=== PATIENT | male | born 1965 | race Caucasian/White ===

== ENCOUNTER 2016-06-20 20:04 | Emergency (ER) | payer BC ==
[~2016-06-20] VITALS: Ht 182.9 cm; Wt 69.0 kg
[~2016-06-20 20:04] MED LIST: ASPIRIN EC81 MG PO; FLOMAX0.4 M1 PO; INDERAL 20MG TA20 MG PO; LEVOTHYROXIN50 MCG PO; PRAVASTATIN40 MG PO
[2016-06-20 20:45] LABS: HEMATOCRIT 44.8 % (39.0-50.0); HEMOGLOBIN 15.6 g/dl (14.0-18.0); IMMATURE GRANULOCYTES 0.2 % (0.0-1.0); MEAN CORPUSCULAR HGB CONC 34.8 g/L CALC (32.0-36.0); NEUT# 4.52 thou/uL (1.82-7.42); RED BLOOD COUNT 4.87 mill/uL (4.70-6.10); RED CELL DISTRI WIDTH 12.4 % (11.5-15.5)
[2016-06-20 20:49] LABS: URINE BILIRUBIN - DIPSTICK NEGATIVE (NEGATIVE); URINE BLOOD DIPSTICK NEGATIVE (NEGATIVE); URINE CLARITY CLEAR; URINE COLOR YELLOW; URINE GLUCOSE - DIPSTICK NEGATIVE (NEGATIVE); URINE KETONE NEGATIVE (NEGATIVE); URINE LEUK ESTERASE NEGATIVE (NEGATIVE); URINE NITRITE - DIPSTICK NEGATIVE (Negative); URINE PH 5.5 (4.5-8.0); URINE PROTEIN - DIPSTICK NEGATIVE (NEG-TRACE); URINE UROBILINOGEN - DIPSTICK 0.2 E.U./dL (0.2)
[2016-06-20 21:02] LABS: ALBUMIN 4.3 g/dL (3.2-5.0); ALKALINE PHOSPHATASE 53 u/l (38-126); AMYLASE 88 u/l (30-110); ANION GAP 17 (6-22 (CALC)); BILIRUBIN, TOTAL 0.7 mg/dL (0.0-1.4); BUN 12 mg/dL (9-20); BUN/CREATININE RATIO 13 (12-20 (CALC)); CALCIUM 9.4 mg/dL (8.4-10.2); CARBON DIOXIDE 24 mmol/l (22-30); CHLORIDE 101 mmol/l (95-108); CREATININE 0.9 mg/dL (0.7-1.3); GFR > 60 ML/MIN (>=60 (CALC)); GFR FOR AFR.AMER. > 60 ML/MIN (>=60 (CALC)); GLUCOSE 88 mg/dL (75-110); LIPASE 131 u/l (23-300); SGOT/AST 17 u/l (17-59); SGPT/ALT 29 u/l (21-72); SODIUM 138 mmol/l (137-146); TOTAL PROTEIN 7.5 g/dL (6.3-8.2)
[2016-06-20] MEDS ORDERED: METRONIDAZOL500 MG PO (22:26)
[2016-06-20] MEDS ORDERED: CIPROFLOXACN500 MG PO (22:26)
[2016-06-20] MEDS ORDERED: ULTRAM50 M1 PO (22:26)
[2016-06-20 22:46] VITALS: BP 110/72
== END 2016-06-20 22:47 | disposition home or self-care (01) | DRG 392 ==
LOC: ED 20:04
DX: R10.32 Left lower quadrant pain (principal); E03.9 Hypothyroidism, unspecified; R19.7 Diarrhea, unspecified; E78.00 Pure hypercholesterolemia, unspecified; F17.210 Nicotine dependence, cigarettes, uncomplicated
CPT/HCPCS: Q9967